=== PATIENT | female | born 1980 | race Caucasian/White ===

== ENCOUNTER → 2017-06-02 18:44 | Outpatient (CLI) | payer OTHER, SELFPAY | PROVIDERS: Family Provider Family Medicine; PCP Family Medicine; Visit Provider Physician Assistant Surgical | DX: J02.9 Acute pharyngitis, unspecified (principal) | CPT/HCPCS: 87081 ==

== ENCOUNTER → 2017-07-27 11:34 | Outpatient (CLI) | payer OTHER, SELFPAY ==
[2017-07-27 15:24] LABS: Absolute Lymphocyte Count 2.32 X10^3/ul (0.83-4.51); Absolute Neutrophil Count 4.4 X10^3/uL (2.0-7.7); Basophil# 0.03 X10^3/uL; Basophil% 0.4 % (0-1); Eosinophil# 0.23 X10^3/uL; Eosinophils% 3.1 % (0-5); Hematocrit 37.7 % (37-47); Hemoglobin 12.6 g/dl (12.0-15.0); Lymphocyte # 2.32 X10^3/ul (4.0); Lymphocyte % 30.9 % (19-41); Mean Corp Hgb Conc 33.4 g/gl (32-36); Mean Corpuscular Hgb 30.4 pg (27.0-32.0); Mean Corpuscular Volume 91.1 fL (81-99); Mean Platelet Vol. 11.6 fl (6.2-12.0); Monocyte# 0.54 X10^3/uL; Monocyte% 7.2 % (0-10); Neutrophil # 4.38 X10^3/uL (2.7-7.7); Neutrophil % 58.1 % (47-70); Platelet Count 268 K/mm3 (150-450); RBC Distribution Width CV 13.1 % (11.6-14.6); Red Blood Count 4.14 M/mm3 (4.2-5.4); White Blood Count 7.5 K/mm3 (4.4-11.0)
[2017-07-27 15:28] LABS: POSITIVE COUNT NO; POSITIVE DIFFERENTIAL NO; POSITIVE MORPHOLOGY NO
[2017-07-27 15:51] LABS: Vitamin D,25 Hydroxy 46.1 ng/mL (29.95-100.01)
[2017-07-27 16:00] LABS: ALB/GLOB Ratio 0.9 RATIO (0.9-2.4); AST(SGOT) 12 U/L (15-37); Alanine Aminotransfer ALT/SGPT 22 U/L (13-56); Albumin, Serum 3.8 g/dL (3.2-5.0); Alkaline Phosphatase 72 U/L (45-117); Anion Gap 7 (5-15); BUN 14 mg/dL (7-18); BUN/Creat Ratio 14.8 RATIO (10-20); Calcium,Total 9.2 mg/dL (8.5-10.1); Chloride 103 mmol/L (98-107); Creatinine, Serum 0.94 mg/dL (0.55-1.02); EST Glomerular Filtration Rate 71 mL/min (>60); Est Glom Filt Rate - Afr Amer 86 mL/min (>60); Globulin 4.1 g/dL (2.2-4.2); Glucose 75 mg/dL (74-106); Potassium 3.6 mmol/L (3.5-5.1); Protein, Total 7.9 g/dL (6.4-8.2); Rheumatoid Factor < 10.0 IU/mL (<15); Sodium Level 137 mmol/L (136-145); T4 Free Direct 1.13 ng/dL (0.76-1.46); Thyroid Stim Hormone (TSH) 1.59 uIU/mL (0.358-3.74)
[2017-07-28 13:36] LABS: ANTINUCLEAR ANTIBODIES DIRECT Negative (Negative)
[2017-07-29 11:25] LABS: CCP IgG Antibodies 4 units (0-19)
== END ==
PROVIDERS: Family Provider Family Medicine; PCP Family Medicine; Visit Provider Family Medicine
DX: M06.00 Rheumatoid arthritis without rheumatoid factor, unspecified site (principal); R61 Generalized hyperhidrosis; R79.89 Other specified abnormal findings of blood chemistry; R53.83 Other fatigue
CPT/HCPCS: 36415; 80053; 82306; 84439; 84443; 85025; 86038; 86200; 86225; 86235; 86431

== ENCOUNTER → 2018-04-05 12:03 | Outpatient (CLI) | payer OTHER, SELFPAY ==
--- NOTE | 2018-04-05 12:09 | RAD_ITS ---
STUDY: X-RAY CHEST REASON FOR EXAM: Female, 37 years old. Cough. TECHNIQUE: PA and lateral views of the chest. COMPARISON: None. FINDINGS: Patchy infiltrates are seen in the right upper, right middle and right lower lobes as well as in the left upper lobe. There is no demonstrated pleural abnormality. Normal size heart. Normal mediastinum and sonia. Normal visualized pulmonary arteries. Normal visualized aortic arch and descending thoracic aorta. Normal visualized thoracic spine. Normal visualized ribs, clavicles, and shoulders. There is no demonstrated abnormality of the visualized soft tissue structures of the upper abdomen. RAD/Chest PA and Lateral IMPRESSION: Patchy infiltrates are seen in both lungs as described. Follow-up is recommended. Electronically Signed: Jordon Sood MD at 12:27 EST Tel [phone], Service support ,
== END ==
PROVIDERS: Family Provider Family Medicine; PCP Family Medicine; Referring Provider Family Medicine; Visit Provider Family Medicine
DX: J40 Bronchitis, not specified as acute or chronic (principal)
CPT/HCPCS: 71046

== ENCOUNTER → 2018-05-05 10:39 | Outpatient (CLI) | payer OTHER, SELFPAY ==
[2018-05-05 10:00] VITALS: BMI 26.4
[2018-05-05 11:00] LABS: Absolute Lymphocyte Count 2.34 X10^3/ul (0.83-4.51); Absolute Neutrophil Count 5.9 X10^3/uL (2.0-7.7); Basophil# 0.04 X10^3/uL; Basophil% 0.4 % (0-1); Eosinophil# 0.39 X10^3/uL; Eosinophils% 4.2 % (0-5); Hematocrit 37.8 % (37-47); Hemoglobin 12.7 g/dl (12.0-15.0); Lymphocyte # 2.34 X10^3/ul (4.0); Lymphocyte % 24.9 % (19-41); Mean Corp Hgb Conc 33.6 g/gl (32-36); Mean Corpuscular Hgb 29.7 pg (27.0-32.0); Mean Corpuscular Volume 88.5 fL (81-99); Mean Platelet Vol. 10.8 fl (6.2-12.0); Monocyte# 0.72 X10^3/uL; Monocyte% 7.7 % (0-10); Neutrophil # 5.86 X10^3/uL (2.7-7.7); Neutrophil % 62.5 % (47-70); Platelet Count 262 K/mm3 (150-450); RBC Distribution Width CV 13.6 % (11.6-14.6); RBC Distribution Width SD 43.1 fl (35.1-43.9); Red Blood Count 4.27 M/mm3 (4.2-5.4); White Blood Count 9.4 K/mm3 (4.4-11.0)
[2018-05-05 11:01] LABS: POSITIVE COUNT NO; POSITIVE DIFFERENTIAL NO; POSITIVE MORPHOLOGY NO
[2018-05-05 12:09] LABS: HIV - WCH Non-Reactive (Nonreactive); Rubella IgG > 500.0 IU/mL
[2018-05-05 17:17] LABS: Chlamydia Trachomatis by PCR Negative (Negative); Neisserai gonorrhoeae by PCR Negative (Negative); Probe Check PASS; Sample Adequacy Control PASS; Specimen Processing Control PASS
[2018-05-06 07:54] LABS: HEPATITIS B SURFACE AG Negative (Negative)
[2018-05-06 23:34] LABS: Rapid Plasmin Reagin (RPR) NONREACTIVE (NONREACTIVE)
== END ==
PROVIDERS: Family Provider Family Medicine; PCP Family Medicine; Referring Provider Nurse Practitioner Women's Health; Visit Provider Nurse Practitioner Women's Health
DX: Z34.80 Encounter for supervision of other normal pregnancy, unspecified trimester (principal)
CPT/HCPCS: 36415; 85025; 86592; 86703; 86762; 86850; 86900; 87086; 87340; 87491; 87591

== ENCOUNTER → 2018-05-18 08:52 | Outpatient (CLI) | payer OTHER, SELFPAY ==
[2018-05-05 10:00] VITALS: BMI 26.4
== END ==
PROVIDERS: Family Provider Family Medicine; PCP Family Medicine; Visit Provider Nurse Practitioner Women's Health
DX: Z34.81 Encounter for supervision of other normal pregnancy, first trimester (principal); Z31.430 Encounter of female for testing for genetic disease carrier status for procreative management
CPT/HCPCS: 36415

== ENCOUNTER → 2018-07-05 13:20 | Outpatient (CLI) | payer OTHER, SELFPAY ==
[2018-07-05 11:16] VITALS: BMI 26.4
== END ==
PROVIDERS: Family Provider Family Medicine; PCP Family Medicine; Visit Provider Nurse Practitioner Women's Health
DX: N30.00 Acute cystitis without hematuria (principal); Z36.9 Encounter for antenatal screening, unspecified
CPT/HCPCS: 36415; 87086; 87088; 87186

== ENCOUNTER → 2018-07-13 18:04 | Outpatient (CLI) | payer OTHER, SELFPAY ==
[2018-07-13 10:01] VITALS: BMI 30.5
== END ==
PROVIDERS: Family Provider Family Medicine; PCP Family Medicine; Referring Provider Nurse Practitioner Women's Health; Visit Provider Nurse Practitioner Women's Health
DX: O23.40 Unspecified infection of urinary tract in pregnancy, unspecified trimester (principal)
CPT/HCPCS: 87086

== ENCOUNTER → 2018-07-20 13:52 | Outpatient (CLI) | payer OTHER, SELFPAY ==
[2018-07-05 11:16] VITALS: BMI 26.4
[2018-07-13 10:01] VITALS: BMI 30.5
--- NOTE | 2018-07-20 13:53 | US_ITS ---
STUDY: SECOND AND THIRD TRIMESTER OBSTETRICAL ULTRASOUND REASON FOR EXAM: Female, . Anatomy. LMP: March 08, 2018. TECHNIQUE: Transabdominal. TECHNICAL QUALITY: Adequate. PRIOR ULTRASOUND: None. FINDINGS: There is a single intrauterine fetus. The fetus is in a breech presentation. There is demonstrated cardiac activity with a heart rate of 140 bpm. There is a subjectively normal amniotic fluid volume. The placenta is posterior in location and is not low lying. There are Grade 0 placental changes. The cervix measures 4.0 in length. The bilateral adnexal regions are normal. BIOMETRY: BPD: 4.16 cm: 18 weeks, 5 days HC: 16.34 cm: 19 weeks, 1 days AC: 15.02 cm: 20 weeks, 2 days FL: 3.03 cm: 19 weeks, 3 days CI: 72% FL/BPD: 73% FL/AC: 20% HC/AC: 1.09 age by current US: 19 weeks, 3 days. ZEFERINO by current US: December 11, 2018.. Estimated weight: 310 grams, +/- 45 grams, 79 %. Age by LMP: 19 weeks, 1 days. ZEFERINO by LMP: December 13, 2018.. ANATOMY: Cranium: Normal lateral ventricles. Normal choroid plexus. Normal cerebellum. Normal cisterna magna. Normal face, nose and lips. Chest: Normal 4-chamber heart. Abdomen/Pelvis: Normal diaphragm. Normal stomach. Normal abdominal wall. Normal cord insertion. Normal 3 vessel cord. Normal kidneys. Normal bladder. Spine: Normal cervical spine. Normal thoracic spine. Normal lumbar spine. Normal sacrum. Extremities: Normal bilateral upper extremities. Normal bilateral lower extremities. US/OB Anatomy Scan IMPRESSION: Viable, breech presentation intrauterine . Please see statistics above. No sonographically evident anatomic abnormality. age by current ultrasound is 19 weeks and 3 days with estimated date of deliver by ultrasound of December 11, 2018. Electronically Signed: Jorge Magaña MD at 16:10 EDT , Service support ,
== END ==
PROVIDERS: Family Provider Family Medicine; PCP Family Medicine; Referring Provider Obstetrics & Gynecology; Visit Provider Obstetrics & Gynecology
DX: Z36.9 Encounter for antenatal screening, unspecified (principal)
CPT/HCPCS: 76805

== ENCOUNTER → 2018-09-16 08:32 | Outpatient (CLI) | payer OTHER, SELFPAY ==
[2018-08-27 08:18] VITALS: BMI 30.5
[2018-09-16 09:38] LABS: Absolute Lymphocyte Count 2.09 X10^3/ul (0.83-4.51); Absolute Neutrophil Count 8.5 X10^3/uL (2.0-7.7); Basophil# 0.02 X10^3/uL; Basophil% 0.2 % (0-1); Differential Indicated SCAN CRITERIA MET; Eosinophil# 0.24 X10^3/uL; Hematocrit 31.3 % (37-47); Hemoglobin 10.4 g/dl (12.0-15.0); Lymphocyte # 2.09 X10^3/ul (4.0); Lymphocyte % 17.7 % (19-41); Mean Corp Hgb Conc 33.2 g/gl (32-36); Mean Corpuscular Hgb 29.4 pg (27.0-32.0); Mean Corpuscular Volume 88.4 fL (81-99); Mean Platelet Vol. 10.7 fl (6.2-12.0); Monocyte% 6.8 % (0-10); Neutrophil # 8.54 X10^3/uL (2.7-7.7); Neutrophil % 72.4 % (47-70); POSITIVE COUNT NO; POSITIVE DIFFERENTIAL NO; POSITIVE MORPHOLOGY NO; Platelet Count 214 K/mm3 (150-450); RBC Distribution Width SD 42.4 fl (35.1-43.9); Red Blood Count 3.54 M/mm3 (4.2-5.4); White Blood Count 11.8 K/mm3 (4.4-11.0)
[2018-09-16 10:03] LABS: Glucose Challenge Gest 1H 50g 54 mg/dL (70-140)
== END ==
PROVIDERS: Family Provider Family Medicine; PCP Family Medicine; Referring Provider Obstetrics & Gynecology; Visit Provider Obstetrics & Gynecology
DX: O09.90 Supervision of high risk pregnancy, unspecified, unspecified trimester (principal); Z3A.00 Weeks of gestation of pregnancy not specified
CPT/HCPCS: 36415; 82950; 85025

== ENCOUNTER → 2018-10-14 07:58 | Outpatient (CLI) | payer OTHER, SELFPAY ==
[2018-10-08 09:03] VITALS: BMI 30.5
--- NOTE | 2018-10-14 08:00 | US_ITS ---
STUDY: SECOND AND THIRD TRIMESTER OBSTETRICAL ULTRASOUND REASON FOR EXAM: Female, 38 years old. Routine survey. LMP: March 08, 2018. TECHNIQUE: Transabdominal TECHNICAL QUALITY: Adequate. PRIOR ULTRASOUND: None. FINDINGS: There is a single intrauterine fetus. The fetus is in a breech presentation. There is demonstrated cardiac activity with a heart rate of 139 bpm. There is a normal amniotic fluid volume. The largest amniotic fluid pocket measures 5.4 cm. The amniotic fluid index (STEFAN) is 17.5 cm. The placenta is fundal in location. There are Grade 1 placental changes. The cervix measures 4.8 cm in length. The adnexal regions are not visualized. BIOMETRY: BPD: 8.43 cm: 34 weeks, 0 days HC: 31.36 cm: 35 weeks, 2 days AC: 30.01 cm: 34 weeks, 0 days FL: 5.93 cm: 31 weeks, 0 days CI: 77 FL/BPD: 70% FL/HC: FL/AC: 20% HC/AC: 1.04 age by current US: 33 weeks, 4 days. ZEFERINO by current US: November 28, 2018. Estimated weight: 2148 grams, +/- 314 grams, 91 %. age by prior US: 31 weeks, 5 days. ZEFERINO by prior US: December 11, 2018. Age by LMP: 31 weeks, 3 days. ZEFERINO by LMP: December 13, 2018. US/OB Limited With Biometrics IMPRESSION: Single live intrauterine gestation with a mean gestational age of 31 weeks and 5 days. The measurements obtained today follow up in the normal expected range. Electronically Signed: Jordon Sood, at 15:09 EDT , Service support ,
== END ==
PROVIDERS: Family Provider Family Medicine; PCP Family Medicine; Referring Provider Obstetrics & Gynecology; Visit Provider Obstetrics & Gynecology
DX: O26.843 Uterine size-date discrepancy, third trimester (principal); Z3A.00 Weeks of gestation of pregnancy not specified
CPT/HCPCS: 76816

== ENCOUNTER → 2018-11-03 13:38 | Outpatient (CLI) | payer OTHER, SELFPAY ==
[2018-11-03 09:27] VITALS: BMI 32.8
== END ==
PROVIDERS: Family Provider Family Medicine; PCP Family Medicine; Referring Provider Nurse Practitioner Women's Health; Visit Provider Nurse Practitioner Women's Health
DX: O23.40 Unspecified infection of urinary tract in pregnancy, unspecified trimester (principal); Z3A.00 Weeks of gestation of pregnancy not specified
CPT/HCPCS: 87086; 87088

== ENCOUNTER 2018-11-08 06:40 | Outpatient (CLI) | payer OTHER, SELFPAY ==
[2018-11-05 10:48] VITALS: BMI 32.8
[2018-11-08 07:19] VITALS: BMI 27.1
--- NOTE | 2018-11-08 10:29 | OB.TRI.PN_ITS ---
Progress Notes Date of Service: 11/08/18 Progress Note: decreased movememnt fht 140 moderate variability reactive no decelerations category I tracing [place]: irregular a/p decreased movement dc home kick counts reactive nst Multi Select Codes - Urinary/Genital Urinary/Genital CPT Codes: 96781-95 non-stress test Interp
== END 2018-11-08 07:40 | disposition home or self-care (01) ==
LOC: WPOUT 07:00 → WP 07:00
PROVIDERS: Family Provider Family Medicine; PCP Family Medicine; Referring Provider Obstetrics & Gynecology; Visit Provider Obstetrics & Gynecology
DX: O36.8190 Decreased fetal movements, unspecified trimester, not applicable or unspecified (principal); Z3A.00 Weeks of gestation of pregnancy not specified
CPT/HCPCS: 59025; 59050; 99218; G0378

== ENCOUNTER → 2018-11-11 07:46 | Outpatient (CLI) | payer OTHER, SELFPAY ==
[2018-10-20 08:55] VITALS: BMI 32.8
[2018-11-08 07:19] VITALS: BMI 27.1
--- NOTE | 2018-11-11 07:47 | US_ITS ---
STUDY: SECOND AND THIRD TRIMESTER OBSTETRICAL ULTRASOUND - LIMITED REASON FOR EXAM: Female, 38 years old. Routine survey. LMP: March 08, 2018. PRIOR ULTRASOUND: Comparison is made with prior study dated October 14, 2018. TECHNIQUE: Transabdominal TECHNICAL QUALITY: Adequate. FINDINGS: There is a single intrauterine fetus. The fetus is in a cephalic presentation. There is demonstrated cardiac activity with a heart rate of 127 bpm. There is a normal amniotic fluid volume. The largest amniotic fluid pocket measures 6.0 cm. The amniotic fluid index (STEFAN) is 20.55 cm. The placenta is fundal in location. There are Grade 1 placental changes. The cervix measures 3.6 cm in length. BIOMETRY: BPD: 9.38 cm: 38 weeks, 2 days HC: 34.21 cm: 39 weeks, 4 days AC: 33.39 cm: 37 weeks, 3 days FL: 6.93 cm: 34 weeks, 5 days Age by LMP: 35 weeks, 3 days. ZEFERINO by LMP: December 13, 2018. age by prior US: 37 weeks, 4 days. ZEFERINO by prior US: November 28, 2018. age by current US: 37 weeks, 4 days. ZEFERINO by current US: November 28, 2018. Estimated weight: 3083 grams, +/- 450 grams, 88 percentile. US/OB Limited With Biometrics IMPRESSION: Single live intrauterine gestation with a mean gestational age of 37 weeks and 4 days. The measurements obtained today fall within the normal expected range. Electronically Signed: Jordon Sood, at 14:11 EDT , Service support ,
== END ==
PROVIDERS: Family Provider Family Medicine; PCP Family Medicine; Referring Provider Obstetrics & Gynecology; Visit Provider Obstetrics & Gynecology
DX: O09.513 Supervision of elderly primigravida, third trimester (principal); Z3A.37 37 weeks gestation of pregnancy
CPT/HCPCS: 76816

== ENCOUNTER → 2018-11-17 17:18 | Outpatient (CLI) | payer OTHER, SELFPAY ==
[2018-11-17 09:08] VITALS: BMI 27.1
== END ==
PROVIDERS: Family Provider Family Medicine; PCP Family Medicine; Referring Provider Obstetrics & Gynecology; Visit Provider Obstetrics & Gynecology
DX: Z34.93 Encounter for supervision of normal pregnancy, unspecified, third trimester (principal); Z3A.36 36 weeks gestation of pregnancy
CPT/HCPCS: 87081

== ENCOUNTER 2018-11-29 11:05 | Outpatient (CLI) | payer OTHER, SELFPAY ==
[2018-11-24 08:55] VITALS: BMI 27.1
[2018-11-29 11:24] VITALS: BMI 34.0
[2018-11-29 11:40] LABS: Absolute Lymphocyte Count 2.12 X10^3/uL (0.83-4.51); Absolute Neutrophil Count 7.4 X10^3/uL (2.0-7.7); Basophil# 0.05 X10^3/uL; Basophil% 0.5 % (0-1); Eosinophil# 0.23 X10^3/uL; Eosinophils% 2.1 % (0-5); Hemoglobin 11.5 g/dL (12.0-15.0); Lymphocyte # 2.12 X10^3/ul (4.0); Lymphocyte % 19.6 % (19-41); Mean Corp Hgb Conc 33.8 g/dL (32-36); Mean Corpuscular Hgb 28.8 pg (27.0-32.0); Mean Corpuscular Volume 85.2 fL (81-99); Mean Platelet Vol. 11.8 fl (6.2-12.0); Monocyte# 0.86 X10^3/uL; NRBC Flagged by Analyzer 0 % (0-5); Neutrophil # 7.41 X10^3/uL (2.7-7.7); Neutrophil % 68.7 % (47-70); Platelet Count 184 K/mm3 (150-450); RBC Distribution Width CV 14.2 % (11.6-14.6); RBC Distribution Width SD 44.5 fl (35.1-43.9); Red Blood Count 3.99 M/mm3 (4.2-5.4); White Blood Count 10.8 K/mm3 (4.4-11.0)
[2018-11-29 11:55] LABS: ALB/GLOB Ratio 0.7 RATIO (0.9-2.4); AST(SGOT) 16 U/L (15-37); Alanine Aminotransfer ALT/SGPT 34 U/L (13-56); Albumin, Serum 2.8 g/dL (3.2-5.0); Alkaline Phosphatase 215 U/L (45-117); Anion Gap 9 (5-15); BUN 8 mg/dL (7-18); BUN/Creat Ratio 10.3 RATIO (10-20); Calcium,Total 9.5 mg/dL (8.5-10.1); Chloride 107 mmol/L (98-107); Creatinine, Serum 0.78 mg/dL (0.55-1.02); EST Glomerular Filtration Rate 89 mL/min (>60); Est Glom Filt Rate - Afr Amer 107 mL/min (>60); Globulin 4.3 g/dL (2.2-4.2); Glucose 71 mg/dL (74-106); Potassium 3.5 mmol/L (3.5-5.1); Protein, Total 7.1 g/dL (6.4-8.2); Sodium Level 138 mmol/L (136-145)
--- NOTE | 2018-11-29 22:15 | OB.TRI.PN ---
Progress Notes Date of Service: 11/29/18 Progress Note: patient seen secondary to pruritis. nl labs, bile acids sent fht 130 moderate variability reactive no decelerations category I tracing [place]: irregular A/P pruritis in reactive nst nl labs await bile acids. kick counts. Laboratory Studies: Laboratory Tests 11/29/18 11/29/18 Range/Units 11:25 11:25 WBC 10.8 (4.4-11.0) K/mm3 RBC 3.99 L (4.2-5.4) M/mm3 Hgb 11.5 L (12.0-15.0) g/dL Hct 34.0 L (37-47) % MCV 85.2 (81-99) fL MCH 28.8 (27.0-32.0) pg MCHC 33.8 (32-36) g/dL RDW Std Deviation 44.5 H (35.1-43.9) fl RDW Coeff of Ervin 14.2 (11.6-14.6) % Plt Count 184 (150-450) K/mm3 MPV 11.8 (6.2-12.0) fl Immature Gran % (Auto) 1.100 H (0.0-0.9) % Neut % (Auto) 68.7 (47-70) % Lymph % (Auto) 19.6 (19-41) % [place] % (Auto) 8.0 (0-10) % Eos % (Auto) 2.1 (0-5) % Baso % (Auto) 0.5 (0-1) % Absolute Neuts (auto) 7.4 (2.0-7.7) X10^3/uL Absolute Lymphs (auto) 2.12 (0.83-4.51) X10^3/uL Nucleated RBC % 0 (0-5) % Sodium 138 (136-145) mmol/L Potassium 3.5 (3.5-5.1) mmol/L Chloride 107 (98-107) mmol/L Carbon Dioxide 22.0 (21.0-32.0) mmol/L Anion Gap 9 (5-15) BUN 8 (7-18) mg/dL Creatinine 0.78 (0.55-1.02) mg/dL Estim Creat Clear Calc 78.10 ml/min Est GFR (MDRD) Af Amer 107 (>60) mL/min Est GFR (MDRD) Non-Af 89 (>60) mL/min BUN/Creatinine Ratio 10.3 (10-20) RATIO Glucose 71 L (74-106) mg/dL Calcium 9.5 (8.5-10.1) mg/dL Total Bilirubin 0.30 (0.20-1.00) mg/dL AST 16 (15-37) U/L ALT 34 (13-56) U/L Alkaline Phosphatase 215 H (45-117) U/L Total Protein 7.1 (6.4-8.2) g/dL Albumin 2.8 L (3.2-5.0) g/dL Globulin 4.3 H (2.2-4.2) g/dL Albumin/Globulin Ratio 0.7 L (0.9-2.4) RATIO Multi Select Codes - Urinary/Genital Urinary/Genital CPT Codes: 95574-18 non-stress test Interp
== END 2018-11-29 13:20 | disposition home or self-care (01) ==
LOC: WPOUT 11:16 → WP 11-30 13:51
PROVIDERS: Family Provider Family Medicine; PCP Family Medicine; Referring Provider Obstetrics & Gynecology; Visit Provider Obstetrics & Gynecology
DX: O26.899 Other specified pregnancy related conditions, unspecified trimester (principal); L29.9 Pruritus, unspecified; Z3A.00 Weeks of gestation of pregnancy not specified
CPT/HCPCS: 36415; 59025; 59050; 80053; 85025; 99218; G0378

== ENCOUNTER 2018-12-01 16:20 | Outpatient (CLI) | payer OTHER, SELFPAY ==
[2018-12-01 09:00] VITALS: BMI 34.0
[2018-12-01 16:57] VITALS: BMI 34.4
--- NOTE | 2018-12-02 00:58 | OB.TRI.NOTE ---
- Problem List (1) False labor Status: Acute History of Present Illness Date of Service: 12/01/18 Was patient seen by the physician?: Yes Reason For Visit: R/O LABOR Gestational age: 38 History of Present Illness: co ctx Allergies No Known Allergies Allergy (Verified 12/01/18 08:59) - Pertinent Past Medical History Medical History: Past Medical History (Last Reviewed 12/01/18 @ 09:00 by Anjelica Fuentes) Asthma Rheumatoid arthritis Surgical History: Past Surgical History (Last Reviewed 12/01/18 @ 09:00 by Anjelica Fuentes) History of elbow surgery tendon elbow repair NST - FHR Rate Baby A Baseline: 130 Variability:: Moderate Accelerations:: 15 x 15 Decelerations:: None NST Reactive:: Yes FHR Category:: Category I Uterine Activity:: q 2-4 Impression/Plan false labor reactive nst cat I dc home labor precautions no cervical change Multi Select Codes - Urinary/Genital Urinary/Genital CPT Codes: 20977-58 non-stress test Interp
== END 2018-12-01 18:45 | disposition home or self-care (01) ==
LOC: WPOUT 16:52 → WP 16:53
PROVIDERS: Family Provider Family Medicine; PCP Family Medicine; Referring Provider Obstetrics & Gynecology; Visit Provider Obstetrics & Gynecology
DX: O47.1 False labor at or after 37 completed weeks of gestation (principal); O26.893 Other specified pregnancy related conditions, third trimester; M06.9 Rheumatoid arthritis, unspecified; J45.909 Unspecified asthma, uncomplicated; Z3A.38 38 weeks gestation of pregnancy
CPT/HCPCS: 59025; 59050; 99218; G0378

== ENCOUNTER 2018-12-06 07:12 | Inpatient (IN) | payer OTHER, SELFPAY ==
[2018-12-06 07:26] VITALS: BMI 34.4
[2018-12-06] MEDS: Lactated Ringers 1,000 ML 50 ML IV (08:00)
[2018-12-06 08:11] LABS: Absolute Lymphocyte Count 2.22 X10^3/uL (0.83-4.51); Absolute Neutrophil Count 7.6 X10^3/uL (2.0-7.7); Basophil# 0.04 X10^3/uL; Basophil% 0.4 % (0-1); Eosinophil# 0.23 X10^3/uL; Eosinophils% 2.1 % (0-5); Hematocrit 34.4 % (37-47); Hemoglobin 11.5 g/dL (12.0-15.0); Lymphocyte # 2.22 X10^3/ul (4.0); Lymphocyte % 20.4 % (19-41); Mean Corp Hgb Conc 33.4 g/dL (32-36); Mean Corpuscular Hgb 28.8 pg (27.0-32.0); Mean Corpuscular Volume 86.2 fL (81-99); Mean Platelet Vol. 12.1 fl (6.2-12.0); Monocyte# 0.68 X10^3/uL; Monocyte% 6.2 % (0-10); NRBC Flagged by Analyzer 0 % (0-5); Neutrophil % 69.8 % (47-70); Platelet Count 190 K/mm3 (150-450); RBC Distribution Width CV 14.5 % (11.6-14.6); RBC Distribution Width SD 45.6 fl (35.1-43.9); Red Blood Count 3.99 M/mm3 (4.2-5.4); White Blood Count 10.9 K/mm3 (4.4-11.0)
[2018-12-06] MEDS: Oxytocin 30 units/NS 500 ml 30 UNITS/500 ML IV.SOLN IV (08:30)
[2018-12-06] MEDS: Lactated Ringers 500 ML 999 ML IV ×2 (13:20→16:15)
[2018-12-06] MEDS: fentaNYL-bupivacaine (epidural) 100 ML BAG EPIDURAL ×2 (13:25→19:56)
[2018-12-06] MEDS: Ondansetron 4 MG/2 ML Vial IV ×2 (15:17→21:30)
[2018-12-06] MEDS: Lactated Ringers 1,000 ML 200 ML IV ×3 (15:54→22:59)
--- NOTE | 2018-12-06 18:08 | HP.PCM_ITS ---
- Problem List (1) AMA (advanced maternal age) multigravida 35+ Status: Acute Qualifiers: Trimester: third trimester Qualified Code(s): O09.523 - Supervision of elderly multigravida, third trimester (2) Anemia during Status: Acute (3) Asthma Status: Acute Qualifiers: Asthma severity: mild Asthma persistence: unspecified Asthma complication type: unspecified Qualified Code(s): J45.909 - Unspecified asthma, uncomplicated Comment: exercise induced-uses OTC bronchodilator (4) False labor Status: Acute (5) Status: Acute Qualifiers: Weeks of gestation: 38 weeks Qualified Code(s): Z3A.38 - 38 weeks gestation of Comment: low risk-female/AFP. Normal anatomy (6) Rectus diastasis Status: Acute (7) Supervision of high risk , antepartum Status: Acute Comment: PRR ZEFERINO 12/13/18 girl Araceli Kaufman boyfrienpankaj Wong (8) UTI in Status: Acute Qualifiers: Trimester: first trimester Qualified Code(s): O23.41 - Unspecified infection of urinary tract in , first trimester Comment: 07/06:tx. Repeat culture negative History and Physical Date of Admission: 12/06/18 Intake Vital Signs 12/01/18 Body Mass Index (BMI) 34.0 12/01/18 Height 5 ft 2 in 12/01/18 Weight: 188 lb 12/01/18 Body Mass Index (BMI) 34.4 12/01/18 Blood Pressure 122/84 H Intake Visit Reasons: 38 WEEK OB Chief Complaint: est ob Resource Conservation Manager Required: No Is patient in pain?: No Allergies No Known Allergies Allergy (Verified 12/01/18 08:59) Medications ferrous sulfate 325 mg (65 mg iron) tablet 325 mg PO DAILY 10/08/18 [History Confirmed 11/29/18] vitamin,calcium,ejnrgmxh-rups-mbgyt acid tablet 1 tab PO DAILY 10/08/18 [History Confirmed 12/01/18] Last Menstral Period: 03/08/18 Zika: Zika virus screening: Negative : No PFSH PFSH Medical History Asthma (Acute) Rheumatoid arthritis (Acute) Surgical History History of elbow surgery (Acute) Social History (Updated 12/02/18 @ 01:57 by Nerissa Warren MD) Smoking Status: Never smoker alcohol intake: never substance use type: does not use caffeine: Yes what type of physical activity do you participate in: weight training, other details: treadmill frequency: 1-2 times per week seatbelt use: always do you feel safe at home: Yes additional social history: [employer] 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 Date Name GA/Weeks Outcome Route Bth Weight Gen Labor Lgth Anesthesia Del Locatn Provider FOB 10/26/11 Mandeep 38 live - full term 6lbs 13oz Male 1 2 hours epidural [facility] Dr. Kelvin Hooker Delivery Date: 10/26/11 On 05/05/18 @ 09:35 Candace Dai Moderate bleeding after . HPI 38 WEEK OB: Details: LUCIEN MARIN is a 38 year old who presents for routine OB visit. OB Visit ZEFERINO Calculator Estimated Delivery Date Method Current WG Current Estimate 12/13/18 LMP (Certain) 38w 3d Expected Delivery Route/Plan Specific Issue/Plans flu vaccine: yes tdap vaccine: given rhogam: na LARC form signed: danial labor support person: Marvin pain management: epidural cut cord/dad catch: yes : yes PP control planned: [] special requests: [] Initial Weight: Not Recorded Date EGA Weight BP Urine Prot Glucose FHR FuHt Pres Mov CTX Dilation Effaced St Visit Note Effaced 05/05/18 8w 2d 157 lb 4 oz 116/74 171 06/04/18 12w 4d 162 lb 118/64 160 nl NIPT. no vb crmaping 07/05/18 17w 0d 163 lb 6 oz 110/70 Negative Negative 147 Urinary frequency and pressure since yesterday. 07/30/18 20w 4d 169 lb 8 oz 104/76 Negative Negative 143 20 Active absent NO Vb, LOF. Lifted patient earlier this week and felt tearing pain upper abdomen. Exam confirms upper rectus diastasis 08/27/18 24w 4d 173 lb 4 oz 114/70 Negative Negative 140 24 Active no vb lof good f no regular ctx 09/24/18 28w 4d 179 lb 6 oz 116/76 Negative Negative 128 28 Active absent No VB, LOF. Increased heartburn, SOB 10/08/18 30w 4d 180 lb 2 oz 124/70 125 34 Breech Active absent no vb lof good fm n oregular ctx co upper abdominal tension and discomfort. recommend chiropractor and ordered growth us 10/20/18 32w 2d 185 lb 118/76 135 35 Breech Active occasional no vb lof good fm n oregular ctx, reviewed growth us results 11/05/18 34w 4d 185 lb 112/72 Negative Negative 135 36 Breech Active absent no vb lof good fm no regular ctx, having some anxiety 11/17/18 36w 2d 189 lb 116/72 135 39 Cephalic Active absent 0.5 no vb lof good fm no regular ctx 11/24/18 37w 2d 191 lb 122/80 Negative Negative 135 39 Cephalic Active absent no vb lof good fm no regular ctx co hip pain and back pain 12/01/18 38w 2d 188 lb 122/84 Negative Negative 135 40 Cephalic Active occasional 3 50 -2 discussed IOL 39 weeks du e to ama and macro, favorable cervix. no vb lof good fm no regular ctx Visit Notes Visit Date: 12/01/18 ??discussed IOL 39 weeks due to ama and macro, favorable cervix. no vb lof good fm no regular ctx ??Nerissa Warren MD on 12/02/18 Visit Date: 11/24/18 ??no vb lof good fm no regular ctx co hip pain and back pain ??Nerissa Warren MD on 11/30/18 Visit Date: 11/17/18 ??no vb lof good fm no regular ctx ??Nerissa Warren MD on 11/17/18 Visit Date: 11/05/18 ??no vb lof good fm no regular ctx, having some anxiety ??Nerissa Warren MD on 11/05/18 Visit Date: 10/20/18 ??no vb lof good fm n oregular ctx, reviewed growth us results ??Nerissa Warren MD on 10/20/18 Visit Date: 10/08/18 ??no vb lof good fm n oregular ctx co upper abdominal tension and discomfort. recommend chiropractor and ordered growth us ??Nerissa Warren MD on 10/08/18 Visit Date: 09/24/18 ??No VB, LOF. Increased heartburn, SOB ??MATHIEU AbrahamC on 09/24/18 Visit Date: 08/27/18 ??no vb lof good f no regular ctx ??Nerissa Warren MD on 08/27/18 Visit Date: 07/30/18 ??NO Vb, LOF. Lifted patient earlier this week and felt tearing pain upper abdomen. Exam confirms upper rectus diastasis ??CLEMENTE Abraham on 07/30/18 Visit Date: 07/05/18 ??Urinary frequency and pressure since yesterday. ??CLEMENTE Abraham on 07/05/18 Visit Date: 06/04/18 ??nl NIPT. no vb crmaping ??Nerissa Warren MD on 06/04/18 Visit Date: 05/05/18 ??No visit notes to display ACOG First Trimester First Trimester: Desire for , Alcohol, Tobacco Cessation, Illicit/Recreational Drug/Substance Use, Intimate Partner Violence, Barriers to care, Unstable Housing, Communication Barriers, Environmental/Work Hazards, Anticipated Course of Care, Toxoplasmosis Precations, Use of Any medications, Sexual activity, Exercise, Dental Care, Sauna/Hot tub use, Seat Belt use, Childbirth classes/Hospital facilities, , Travel, Indications for US and Screening for Aneuploidy Second Trimester Second Trimester: Signs and Symptoms of Labor, Selecting a care provider, Reproductive Life Planning, Care Planning, Tobacco Cessation, Depression/Anxiety and Intimate Partner Violence Third Trimester Third Trimester: Pain Management Plans, Labor support person(s), Immediate Larc, Movement Monitoring and Feeding Yes ; discussed Trial of Labor after Counseling or discussed Circumcision preference Diagnostics Diagnostics Labs Hct 34.0 % (37-47) L 11/29/18 Hgb 11.5 g/dL (12.0-15.0) L 11/29/18 Obstetrics Ultrasound 11/11/18 Miscellaneous Test Pending 11/29/18 Diagnostics Hgb 11.5 g/dL (12.0-15.0) L 11/29/18 Hct 34.0 % (37-47) L 11/29/18 Details: HIV: Urine Culture: Sequential Screen: NIPT Screen: ROS Const Reports system reviewed and no additional complaints, except as docu Card Reports system reviewed and no additional complaints, except as docu Resp Reports system reviewed and no additional complaints, except as docu GI Reports system reviewed and no additional complaints, except as docu, Reports nausea Reports system reviewed and no additional complaints, except as docu Musc Reports system reviewed and no additional complaints, except as docu Exam Const General: cooperative, healthy appearing, comfortable, anxious HENMT Head: normal to inspection Nose: external nose normal Face and sinus: normal facial exam Neck Neck: normal visual inspection, full ROM, no lymphadenopathy Thyroid: thyroid normal Chest Chest palpation & inspection: normal inspection of the chest Resp Effort & Inspection: normal respiratory effort GI Inspection: normal to inspection Palpation: soft, other (gravid uterus) Other: infant vertex and appropriate size for gestational age Other: Cervical Exam: Extrem General: pedal edema Results [id number] Office Urine Glucose Negative Last Edit by Anjelica Fuentes on 12/01/18 09:0 4 Office Urine Protein Negative Last Edit by Anjelica Fuentes on 12/01/18 09:0 4 Assessment & Plan Problems 1. Multigravida of advanced maternal age in third trimester O09.523 2. Anemia during O99.019 3. Rectus diastasis M62.08 4. Urinary tract infection in mother during first trimester of O23.41 5. Supervision of high risk , antepartum O09.90 6. 38 weeks gestation of Z3A.38 7. Mild asthma, unspecified whether complicated, unspecified whether persistent J45.909 Plan plan IOL at 39 weeks with Pitocin if no spontaneous labor movement and labor precautions reviewed. ACOG trimester education reviewed and updated. see problem list details for updated plan management information and see below for orders placed at this visit. GA appropriate handout given. Orders Orders: POC Urinalysis 2 Dip (Clinic) 12/01/18 Coding Level of Care Code OB Routine Diagnoses Multigravida of advanced maternal age in third trimester O09.523 ??Trimester: third trimester Anemia during O99.019 Rectus diastasis M62.08 Urinary tract infection in mother during first trimester of O23.41 ??Trimester: first trimester Supervision of high risk , antepartum O09.90 38 weeks gestation of Z3A.38 ??Weeks of gestation: 38 weeks Mild asthma, unspecified whether complicated, unspecified whether persistent J45.909 ??Asthma complication type: unspecified ??Asthma persistence: unspecified ??Asthma severity: mild
--- NOTE | 2018-12-06 21:39 | PCM.PN.BLA ---
Progress Note FHT: 120 Moderate variability reactive occasional periodic variable decelerations now resolved and category I tracing [place]: Every 2-3 minute contractions Patient comfortable with no sensation of pushing. labor down and then begin pushing
[2018-12-06] MEDS: Oxytocin 30 units/NS 500 ml 30 UNITS/500 ML IV.SOLN 334 UNITS IV (23:19)
--- NOTE | 2018-12-06 23:32 | OP.PCM_ITS ---
Problem List (1) AMA (advanced maternal age) multigravida 35+ Status: Acute Qualifiers: Trimester: third trimester Qualified Code(s): O09.523 - Supervision of elderly multigravida, third trimester (2) Anemia during Status: Acute (3) Asthma Status: Acute Qualifiers: Asthma severity: mild Asthma persistence: unspecified Asthma complication type: unspecified Qualified Code(s): J45.909 - Unspecified asthma, uncomplicated Comment: exercise induced-uses OTC bronchodilator (4) False labor Status: Acute (5) Status: Acute Qualifiers: Weeks of gestation: 38 weeks Qualified Code(s): Z3A.38 - 38 weeks gestation of Comment: low risk-female/AFP. Normal anatomy (6) Rectus diastasis Status: Acute (7) Supervision of high risk , antepartum Status: Acute Comment: PRR ZEFERINO 12/13/18 tonya Kaufman boyfriend Marvin (8) UTI in Status: Acute Qualifiers: Trimester: first trimester Qualified Code(s): O23.41 - Unspecified infection of urinary tract in , first trimester Comment: 07/06:tx. Repeat culture negative (9) Variable heart rate decelerations, antepartum Status: Acute Vaginal Delivery Maternal Presentation: Medically Indicated Induction iol ama Method of Induction: Pitocin Amniotic Membrane Rupture Type: Artificial Amniotic Fluid Description: Clear Final ZEFERINO: 12/13/18 Gestational age: 39 Weeks and 0 Days Date of Procedure: 12/06/18 Pre-Operative Diagnosis: iol ama Post-Operative Diagnosis: same Surgery/ Procedure Performed: Spontaneous Vaginal Delivery Type of Anesthesia: Epidural Description of Procedure: Patient began pushing and was having good descent and it was in the +3 station but was having recurrent periodic variable decelerations were increasing in length therefore the decision for an operative vaginal delivery was made. Patient was counseled for a vacuum-assisted delivery and the [place] vacuum was applied and a +3 station posterior made with 1 contraction with no pop offs. Head delivered MERT atraumatically followed by the anterior and posterior shoulders the rest the infant delivered was bulb suctioned at delivery and was placed on maternal abdomen delayed cord clamping and cord gases were all sent. Placenta delivered immediately following was noted be intact with three-vessel cord. First-degree perineal laceration was noted and repaired in the usual fashion with 3-0 Vicryl repeat. EBL 400 cc patient and infant tolerated delivery well. Presentation: MERT Placental Delivery Description: Spontaneous Placenta Disposition: [facility] Multi Select Codes - Urinary/Genital Urinary/Genital CPT Codes: 99886 Vaginal Delivery [facility]
[2018-12-07] MEDS: 0.9% Saline Lock 10 ML Syringe IV (02:53)
[2018-12-07 04:00] VITALS: BP 112/68; PULSE 69; RESP 18; TEMP 36.9
[2018-12-07] MEDS: Naproxen 250 MG Tablet 500 MG PO ×2 (07:59→18:42)
[2018-12-07 08:00] VITALS: BP 106/71; PULSE 78; RESP 16; TEMP 36.9; O2SAT 97
[2018-12-07] MEDS: Senna/Docusate Sodium 1 Tablet PO (10:16)
[2018-12-07 13:00] VITALS: BP 99/51; PULSE 68; TEMP 36.9; O2SAT 96
[2018-12-07] MEDS: Acetaminophen 500 MG Tablet 1000 MG PO ×2 (13:55→21:24)
[2018-12-07 17:00] VITALS: BP 100/73; PULSE 84; TEMP 37.2; O2SAT 96
[2018-12-07 21:12] VITALS: BP 101/74; PULSE 79; RESP 18; TEMP 36.8
[2018-12-08 00:32] VITALS: BP 110/66; PULSE 75; RESP 18; TEMP 36.8
[2018-12-08] MEDS: Naproxen 250 MG Tablet 500 MG PO (03:11)
[2018-12-08 03:14] VITALS: BP 108/67; PULSE 69; RESP 18; TEMP 36.4; O2SAT 98
--- NOTE | 2018-12-08 03:50 | PCM.PN.OB ---
Patient Problems: Active and Suspected Problems (Last Reviewed 12/01/18 @ 09:00 by Anjelica Fuentes) Variable heart rate decelerations, antepartum (Acute) Subjective: late entry- patient seen at 5pm /10 doing well no complaints pain controlled no CP SOB N V ambulating well tolerating po lochia moderate, going well - Physical Exam General: Alert, Oriented x3 Vital Signs Temp Pulse Resp BP Pulse Ox 97.5 F L 69 18 108/67 98 12/08/18 03:14 12/08/18 03:14 12/08/18 03:14 12/08/18 03:14 12/08/18 03:14 Oxygen Delivery Method Room Air Weight: 188 lb Body Mass Index (BMI) 34.4 Intake and Output for Last 24 Hours 12/06/18 12/07/18 12/08/18 23:59 23:59 23:59 Intake Total 4203.01 / 4203.01 333 / 333 Output Total 1800 / 1800 Balance 4203.01 / 4203.01 -1467 / -1467 Medical Necessity - Tobacco Use Smoking Status: Never smoker Assessment/Plan All Active Problems (Last Reviewed 12/01/18 @ 09:00 by Anjelica Fuentes) False labor (Acute) Variable heart rate decelerations, antepartum (Acute) AMA (advanced maternal age) multigravida 35+ (Acute) Anemia during (Acute) Rectus diastasis (Acute) UTI in (Acute) Supervision of high risk , antepartum (Acute) (Acute) Asthma (Acute) Pharyngitis, acute (Resolved) Supervision of other normal (Resolved) s/p PPD # 1 1. routine post delivery care 2. breast feeding- support given 3. rh positive 4. rubella immune
[2018-12-08] MEDS: Acetaminophen 500 MG Tablet 1000 MG PO (08:09)
[2018-12-08 08:30] VITALS: BP 109/74; PULSE 74; RESP 16; TEMP 36.6; O2SAT 94
[2018-12-08] MEDS: Senna/Docusate Sodium 1 Tablet PO (09:05)
[2018-12-08 13:29] VITALS: BP 109/71; PULSE 70; RESP 14; TEMP 37.2; O2SAT 96
--- NOTE | 2018-12-08 13:32 | NURSING ---
Patients fundus altered to right of midline due to full bladder. Patient educated on importance of emptying bladder when full to prevent potential hemorrhage. Instructor accompanied director nursing service for this assessment.
--- NOTE | 2018-12-08 13:37 | NURSING ---
This nursing program coordinator reviewed the documentation completed by Maya Fuentes student nurse and it is complete.
--- NOTE | 2018-12-08 14:52 | PCM.PN.OB ---
Subjective: doing well no complaints pain controlled no CP SOB N V ambulating well tolerating po lochia moderate, going well - Physical Exam General: Alert, Oriented x3 Vital Signs Temp Pulse Resp BP Pulse Ox 99 F 70 14 109/71 96 12/08/18 13:29 12/08/18 13:29 12/08/18 13:29 12/08/18 13:29 12/08/18 13:29 Oxygen Delivery Method Room Air Weight: 188 lb Body Mass Index (BMI) 34.4 Intake and Output for Last 24 Hours 12/06/18 12/07/18 12/08/18 23:59 23:59 23:59 Intake Total 4203.01 / 4203.01 333 / 333 Output Total 1800 / 1800 Balance 4203.01 / 4203.01 -1467 / -1467 Medical Necessity - Tobacco Use Smoking Status: Never smoker Assessment/Plan All Active Problems (Last Reviewed 12/08/18 @ 08:42 by Zenaida Fuentes) False labor (Acute) Variable heart rate decelerations, antepartum (Acute) AMA (advanced maternal age) multigravida 35+ (Acute) Anemia during (Acute) Rectus diastasis (Acute) UTI in (Acute) Supervision of high risk , antepartum (Acute) (Acute) Asthma (Acute) Pharyngitis, acute (Resolved) Supervision of other normal (Resolved) s/p PPD # 2 1. routine post delivery care 2. breast feeding- support given 3. rh positive 4. rubella immune
--- NOTE | 2018-12-08 14:54 | DCINST_ITS ---
Discharge Diet: No Restrictions Discharge Activity: Return to Normal Activity, May not drive while taking narcotic pain medications., May Shower May resume sexual activity in: 4-6 weeks Call your doctor if your incision/area has: Continuous Slow Oozing, Sudden Increased Bleeding, Increased Pain/ Swelling, Increased Redness, Foul Smelling Discharge Additional Instructions: If you experience any of the following, contact your healthcare provider. * Bleeding that soaks a pad every hour for 2 hours * Fever 100.4 or higher * Unrelieved incision or abdominal pain * Swelling, redness, discharge or bleeding from your incision or episiotomy site * Your incision begins to separate * Problems urinating (including inability to urinate or burning while urinating). * Visual changes * Severe headache * Flu-like symptoms * Pain or redness in one of both of your breasts * Pain, warmth, tenderness or swelling in your legs, especially the calf area * Frequent nausea and vomiting * Symptoms of depression or anxiety If you experience any of the following, call 911 or go to the nearest Emergency Room. * Chest pain * Problems breathing * Seizure activity * Partial or complete paralysis of a body part, slurred speech, weakness or drooping of the face, or a sudden inability to walk or hold your balance Allergies/Adverse Reactions: Allergies No Known Allergies Allergy (Verified 12/01/18 08:59) Medications to take at Discharge ferrous sulfate 325 mg (65 mg iron) tablet 325 mg PO DAILY 10/08/18 vitamin,calcium,clugsqjf-gmds-hiloe acid tablet 1 tab PO DAILY 10/08/18 Naproxen [Naprosyn] 250 - 500 mg PO Q8H PRN PRN #30 tab 12/08/18 The following prescriptions were given: Naproxen [Naprosyn] 250 - 500 mg PO Q8H PRN PRN #30 tab PRN Reason: MILD PAIN Transmission Status: Pending to [facility] Please Follow Up With: Nerissa Warren MD - [phone] When: Call to make an appointment with your doctor in 6 weeks. If you had elevated Blood pressure or 4th degree laceration you will need to be seen in 2 weeks. Primary Care Physician: Dwight Pacheco MD [Primary Care Provider] - Test Results: Test results from this visit will be discussed in further detail at your follow- up appointment, if applicable.
--- NOTE | 2018-12-08 14:54 | PCM.DCVAG ---
Discharge Diet: No Restrictions Discharge Activity: Return to Normal Activity, May not drive while taking narcotic pain medications., May Shower May resume sexual activity in: 4-6 weeks Call your doctor if your incision/area has: Continuous Slow Oozing, Sudden Increased Bleeding, Increased Pain/ Swelling, Increased Redness, Foul Smelling Discharge Additional Instructions: If you experience any of the following, contact your healthcare provider. Bleeding that soaks a pad every hour for 2 hours Fever 100.4 or higher Unrelieved incision or abdominal pain Swelling, redness, discharge or bleeding from your incision or episiotomy site Your incision begins to separate Problems urinating (including inability to urinate or burning while urinating). Visual changes Severe headache Flu-like symptoms Pain or redness in one of both of your breasts Pain, warmth, tenderness or swelling in your legs, especially the calf area Frequent nausea and vomiting Symptoms of depression or anxiety If you experience any of the following, call 911 or go to the nearest Emergency Room. Chest pain Problems breathing Seizure activity Partial or complete paralysis of a body part, slurred speech, weakness or drooping of the face, or a sudden inability to walk or hold your balance Allergies/Adverse Reactions: Allergies No Known Allergies Allergy (Verified 12/01/18 08:59) Medications to take at Discharge ferrous sulfate 325 mg (65 mg iron) tablet 325 mg PO DAILY 10/08/18 vitamin,calcium,rphhwxul-kwrw-kxniu acid tablet 1 tab PO DAILY 10/08/18 Naproxen [Naprosyn] 250 - 500 mg PO Q8H PRN PRN #30 tab 12/08/18 The following prescriptions were given: Naproxen [Naprosyn] 250 - 500 mg PO Q8H PRN PRN #30 tab PRN Reason: MILD PAIN Transmission Status: Pending to [facility] Please Follow Up With: Nerissa Warren MD - [phone] When: Call to make an appointment with your doctor in 6 weeks. If you had elevated Blood pressure or 4th degree laceration you will need to be seen in 2 weeks. Primary Care Physician: Dwight Pacheco MD [Primary Care Provider] - Test Results: Test results from this visit will be discussed in further detail at your follow-up appointment, if applicable.
== END 2018-12-08 16:00 | disposition home or self-care (01) | DRG 807 ==
PROVIDERS: Admitting Provider Obstetrics & Gynecology; Family Provider Family Medicine; PCP Family Medicine; Referring Provider Obstetrics & Gynecology; Visit Provider Obstetrics & Gynecology
DX: O99.02 Anemia complicating childbirth (principal); D64.9 Anemia, unspecified; O71.89 Other specified obstetric trauma; O70.0 First degree perineal laceration during delivery; O76 Abnormality in fetal heart rate and rhythm complicating labor and delivery; O99.52 Diseases of the respiratory system complicating childbirth; J45.909 Unspecified asthma, uncomplicated; Z3A.39 39 weeks gestation of pregnancy; Z37.0 Single live birth
CPT/HCPCS: 59025; 59050; 85025; 86850; 86900; 86901; 99218; J7120; A4216; G0378; J2405

== ENCOUNTER → 2019-05-12 08:06 | Outpatient (CLI) | payer OTHER, SELFPAY ==
[2019-05-03 10:36] VITALS: BMI 26.4
--- NOTE | 2019-05-13 12:48 | PFT ---
INTRODUCTION: The patient is a 38-year-old female that presents for pulmonary function studies secondary to a diagnosis of exercise-induced bronchospasm. Respiratory therapy reports good patient effort. Bronchodilators were used during testing. INTERPRETATION: Forced expiration spirometry demonstrates no evidence of a large airways obstructive ventilatory defect. There was no significant response to aerosolized bronchodilators, based upon strict ATS criteria. However, the patient did have a relatively robust mid flow bronchodilator response. Spirograms are of good quality and plateau normally. Body plethysmography was performed and reveals lung volumes to be within normal limits. Diffusing capacity by single breath CO is also within normal limits as well. IMPRESSION: Subtle stigmata of possible small airways disease. Otherwise, normal pulmonary function studies.
== END ==
PROVIDERS: PCP Family Medicine; Referring Provider Internal Medicine Critical Care Medicine; Visit Provider Internal Medicine Critical Care Medicine
DX: J45.990 Exercise induced bronchospasm (principal)
CPT/HCPCS: 94060; 94726; 94729

== ENCOUNTER → 2019-12-09 13:35 | Outpatient (CLI) | payer OTHER, SELFPAY ==
[2019-06-02 07:27] VITALS: BMI 26.4
--- NOTE | 2019-12-09 13:40 | RAD_ITS ---
STUDY: X-RAY - LUMBAR SPINE REASON FOR EXAM: Female, 39 years old. Low back pain seems to be more towards the L5 area, pt lifts weights and has a history of RA TECHNIQUE: 5 view(s) of the lumbar spine were obtained. COMPARISON: None FINDINGS: Normal lumbar lordosis. There is no substantial scoliosis. There is a normal alignment of the vertebrae. Normal vertebral bodies and endplates. Normal disc space heights. The soft tissue structures are unremarkable. RAD/L/S Spine Min 4 Views IMPRESSION: Within normal limits x-ray examination of the lumbar spine. Electronically Signed: Merry Merchant MD at 17:25 EDT Tel , Service support ,
== END ==
PROVIDERS: PCP Family Medicine; Referring Provider Family Medicine; Visit Provider Family Medicine
DX: M43.06 Spondylolysis, lumbar region (principal)
CPT/HCPCS: 72110

== ENCOUNTER → 2019-12-15 09:53 | Outpatient (CLI) | payer OTHER, SELFPAY ==
[2019-06-02 07:27] VITALS: BMI 26.4
--- NOTE | 2019-12-15 09:56 | CT_ITS ---
STUDY: CT LUMBAR SPINE WITHOUT CONTRAST REASON FOR EXAM: Female, 39 years old. POSSIBLE FX L4, BACK PAIN AND BURNING RADIATION DOSAGE (If Supplied By Facility): CTDIvol = ( 13.82 ) mGy, DLP = ( 360.02 ) mGycm TECHNIQUE: The patient was scanned in a multi detector CT scanner. High resolution transaxial imaging was performed. Images were obtained from to . Sagittal and coronal images were reconstructed. Individualized dose optimization techniques were used for this CT. COMPARISON: None FINDINGS: Normal lumbar lordosis. There is no substantial scoliosis. Normal vertebrae of the lumbar spine. L1-2: Normal endplates. Normal disc height and morphology. Normal bilateral facet joints. Normal central canal and bilateral lateral recesses. Normal bilateral intervertebral neural foramina. L2-3: Normal endplates. Normal disc height and morphology. Normal bilateral facet joints. Normal central canal and bilateral lateral recesses. Normal bilateral intervertebral neural foramina. L3-4: Minimal anterior spondylosis along the superior endplate of the L4 vertebrae. Normal disc height and morphology. Normal bilateral facet joints. Normal central canal and bilateral lateral recesses. Normal bilateral intervertebral neural foramina. L4-5: Normal endplates. Normal disc height and morphology. Normal bilateral facet joints. Normal central canal and bilateral lateral recesses. Normal bilateral intervertebral neural foramina. L5-S1: Normal endplates. Mild degree of diffuse posterior disc bulge worse on the right side with mild right neural foraminal narrowing. Normal bilateral facet joints. Normal central canal and bilateral lateral recesses. Normal bilateral intervertebral neural foramina. Normal visualized paraspinous soft tissue structures. CT/Spine Lumbar without Contrast IMPRESSION: Mild diffuse posterior disc bulge at the L5-S1 level worse on the right side with mild narrowing of the right intervertebral foramen. Mild anterior spondylosis at the L3-L4 level. Electronically Signed: Jordon Sood, at 10:36 EDT , Service support ,
== END ==
PROVIDERS: PCP Family Medicine; Visit Provider Family Medicine
DX: M43.06 Spondylolysis, lumbar region (principal); R93.7 Abnormal findings on diagnostic imaging of other parts of musculoskeletal system
CPT/HCPCS: 72131

== ENCOUNTER → 2020-01-31 | Outpatient (CLI) | payer OTHER, SELFPAY ==
[2020-01-31 08:22] VITALS: BMI 26.9
[2020-02-21 13:12] LABS: HPV APTIMA, High Risk Negative
== END | disposition home or self-care (01) ==
LOC: LABSPEC 12:49
PROVIDERS: PCP Family Medicine; Referring Provider Nurse Practitioner Women's Health; Visit Provider Nurse Practitioner Women's Health
DX: Z12.4 Encounter for screening for malignant neoplasm of cervix (principal)
CPT/HCPCS: 87624; 88175; G0145

== ENCOUNTER → 2020-03-12 12:22 | Outpatient (CLI) | payer OTHER, SELFPAY ==
[2020-03-09 13:11] VITALS: BMI 27.1
[2020-03-12 13:25] LABS: hCG Titer Quant., Serum < 1 mIU/mL (1-3)
[2020-03-12 13:32] LABS: Follicle Stimulating Hormone 26.9 mIU/mL; Luteinizing Hormone 24.2 mIU/mL; Prolactin 14.2 ng/mL; Thyroid Stim Hormone (TSH) 0.96 uIU/mL (0.358-3.74)
[2020-03-16 17:03] LABS: Anti-Mullerian Hormone,Serum < 0.015 ng/mL (.)
== END ==
PROVIDERS: PCP Family Medicine; Referring Provider Obstetrics & Gynecology; Visit Provider Obstetrics & Gynecology
DX: N91.2 Amenorrhea, unspecified (principal)
CPT/HCPCS: 36415; 83001; 83002; 83516; 84146; 84443; 84702

== ENCOUNTER → 2020-04-02 08:39 | Outpatient (CLI) | payer OTHER, SELFPAY ==
[2020-03-09 13:11] VITALS: BMI 27.1
[2020-04-02 09:33] LABS: Estradiol < 11.0 pg/mL; Follicle Stimulating Hormone 52.1 mIU/mL; Luteinizing Hormone 29.5 mIU/mL
[2020-04-05 09:36] LABS: Testosterone, % Free 1.91 % (0.50-2.80); Testosterone, Free 0.29 ng/dL (0.10-0.85); Testosterone, Total 15 ng/dL (8-48)
[2020-04-07 08:30] LABS: 17-Hydroxyprogesterone 27 ng/dL (.)
== END ==
PROVIDERS: PCP Family Medicine; Referring Provider Obstetrics & Gynecology; Visit Provider Obstetrics & Gynecology
DX: N91.2 Amenorrhea, unspecified (principal)
CPT/HCPCS: 36415; 82627; 82670; 83001; 83002; 83498; 84402; 84403; 82626

== ENCOUNTER → 2020-04-24 13:28 | Outpatient (CLI) | payer OTHER, SELFPAY ==
[2020-03-09 13:11] VITALS: BMI 27.1
--- NOTE | 2020-04-24 13:32 | BD_ITS ---
STUDY: DUAL ENERGY X-RAY ABSORPTIOMETRY / DXA REASON FOR EXAM: Female, 39 years old. MENOPAUSAL -EARLY AT 39 YRS OLD -- TAKES HORMONES IN CONTROL -- HX OF SMOKING IN PAST -- DOES HIGH AMOUNT OF EXERCISE -- FAMILY HX OF OSTEO- GRANDMOTHER -- NO NADEEN TECHNIQUE: Bone Mineral Density (BMD) measurements of lumbar spine and bilateral hips were obtained. COMPARISON: None. FINDINGS: Lumbar Spine (L1-L4): g/cm2 (1.054) / T-score (-0.9) / Z-score (0.9) Findings are suggestive of normal bone density with a low fracture risk. Left Femur Total: g/cm2 (1.025) / T-score (0.1) / Z-score (0.3) Left Femoral Neck: g/cm2 (0.969) / T-score (-0.5) / Z-score (-0.1) Right Femur Total: g/cm2 (0.968) / T-score (-0.3) / Z-score (-0.1) Right Femoral Neck: g/cm2 (0.939) / T-score (-0.7) / Z-score (-0.3) BD/Dexa Bone Density Study IMPRESSION: The patient is considered normal as outlined below according to [employer] Organization (WHO) criteria with a low fracture risk. Reference Information: The T-score is the number of standard deviations above or below the standard which is normal for young adults at their peak bone mineral density. The World Health Organization (WHO) interprets the T-scores as follows: Above -1 Normal bone density Between -1 and -2.5 Osteopenia Equal to / or below -2.5 Osteoporosis As a practical clinical guideline, osteopenia may be graded as follows: Mild -1 through -1.5 Moderate -1.6 through -2.0 Severe -2.1 through -2.4 The Z-score is the number of standard deviations above or below age-matched controls. A Z-score of less than -1.5 would be considered abnormal. References: 1. NIH Osteoporosis and Related Bone Diseases www osteo.org 2. International Society for Clinical Densitometry www iscd.org 3. National Osteoporosis Foundation www nof.org Electronically Signed: Jordon Sood MD at 14:33 EST , Service support ,
== END ==
PROVIDERS: PCP Family Medicine; Referring Provider Obstetrics & Gynecology; Visit Provider Obstetrics & Gynecology
DX: M06.9 Rheumatoid arthritis, unspecified (principal); E28.39 Other primary ovarian failure
CPT/HCPCS: 77080

== ENCOUNTER → 2020-12-20 08:51 | Outpatient (CLI) | payer OTHER, SELFPAY ==
--- NOTE | 2020-12-20 08:54 | RAD_ITS ---
STUDY: X-RAY - THORACIC SPINE REASON FOR EXAM: Female, 40 years old. PAIN AT SCAPULAE TECHNIQUE: 2 view(s) of the thoracic spine were obtained. COMPARISON: None. FINDINGS: Normal kyphosis of the thoracic spine. There is no substantial scoliosis. There is evidence of Schmorl''s nodes in the mid dorsal vertebrae. Normal disc space heights. The soft tissue structures are unremarkable. RAD/Thoracic Spine 2 Views IMPRESSION: Schmorl''s nodes in the mid thoracic vertebrae. Electronically Signed: Jordon Sood MD at 10:22 EDT , Service support ,
== END ==
PROVIDERS: PCP Family Medicine; Referring Provider Family Medicine; Visit Provider Family Medicine
DX: M99.08 Segmental and somatic dysfunction of rib cage (principal); M51.44 Schmorl's nodes, thoracic region
CPT/HCPCS: 72070; 72072

== ENCOUNTER → 2021-01-22 14:16 | Outpatient (CLI) | payer OTHER, SELFPAY ==
--- NOTE | 2021-01-22 14:17 | MRI_ITS ---
STUDY: MRI LUMBAR SPINE WITHOUT CONTRAST REASON FOR EXAM: Female, 40 years old. low back pain, right buttock pain TECHNIQUE: Standardized fat and water weighted pulse sequences were obtained in the sagittal and axial planes. COMPARISON: CT lumbar spine dated 12/15/2019 FINDINGS: Normal lumbar lordosis. There is no substantial scoliosis. Normal conus medullaris that terminates at the L1. L1-2: There is minimal disc space narrowing and endplate spondylosis. There is no significant disc herniation, central canal or foraminal stenosis. L2-3: There is minimal disc space narrowing and endplate spondylosis. There is no significant disc herniation, central canal or foraminal stenosis. L3-4: There is mild disc space narrowing and endplates spondylosis. Mild disc bulge and facet arthropathy without significant central canal stenosis. Mild right and mild left foraminal stenosis. L4-5: There is minimal disc space narrowing and endplates spondylosis. Mild disc bulge and facet arthropathy without significant central canal stenosis. Mild right and minimal left foraminal stenosis. L5-S1: There is mild disc space narrowing and endplates spondylosis mild disc bulge without significant central canal or foraminal stenosis. Mild facet arthropathy. Normal visualized sacral ala. MRI/Spine Lumbar (Routine) IMPRESSION: Mild degenerative changes Electronically Signed: Errol Lord MD at 13:51 EDT Tel , Service support ,
== END ==
PROVIDERS: PCP Family Medicine; Visit Provider Orthopaedic Surgery
DX: M47.817 Spondylosis without myelopathy or radiculopathy, lumbosacral region (principal)
CPT/HCPCS: 72148

== ENCOUNTER 2021-02-16 11:00 | Outpatient (RCR) | payer OTHER, SELFPAY ==
[2020-03-09 13:11] VITALS: BMI 27.1
--- NOTE | 2020-09-21 12:37 | MASS.EVAL ---
Massage Therapy Evaluation: Initial Evaluation Date: 09/21/2020 SUBJECTIVE: Deepak is a 30 year old female who was referred to the [facility] facility for a massotherapy evaluation by Dr. albert with the diagnosis of migraines. She presents today with the symptoms of pain, stiffness and tension in the neck, head, mid back, low back, and left knee. Deepak reports having a past medical history of chronic neck and back pain and that her knee pain could be due to IT band tightness.. OBJECTIVE: Upon observation Deepak has poor posture with her head and shoulders forward from the neutral position in sitting and standing. After examination and palpation, I found Deepak to have high muscle tension with tenderness and myofascial restrictions in her sub occipitals, levator scapulae, trapezius, rhomboids, scalenes, and thoracic paraspinals. Her QL?s, lumbar paraspinals, piriformis, ITB?s, glute medius and minimus all were very tight with fascial restrictions, tender points and trigger points. The first treatment consisted of a one hour massage to her full body with myofascial release, muscle stripping, trigger point compression techniques, and cervical manual traction. ASSESSMENT: I feel that Deepak is a good candidate for massotherapy at this time. She had a favorable response to the first treatment with reduction in her muscle aches, pain, and tension. She also had improvement in her cervical flexibility and low back flexibility. PLAN: The plan of care was reviewed with the patient. The patient is to be seen on an as needed basis for a total of ten sessions with the recommendation of once every month for a one hour treatment.
--- NOTE | 2021-03-16 12:38 | MASS.DISCH ---
Massage Therapy Discharge Summary: Discharge Date: 03/16/2021 Edith was seen for a massotherapy evaluation on 09/21/2020 with the diagnosis of migraines. She was treated with four sessions of massage therapy consisting of deep pressure soft tissue techniques, myofascial release and trigger point compression to his cervical, thoracic, lower back and hips. Edith responded well to the therapy by reporting decreased tension and pain throughout her neck, shoulders, lower back, lower extremities and hips. Her goals for therapy were met throughout the treatment sessions. At this time this patient is being discharged from our care at [facility] facility.
== END 2021-02-16 19:00 | disposition home or self-care (01) ==
LOC: MASS 11:00
PROVIDERS: PCP Family Medicine; Referring Provider Family Medicine; Visit Provider Family Medicine
DX: G43.909 Migraine, unspecified, not intractable, without status migrainosus (principal)
CPT/HCPCS: 97124

== ENCOUNTER → 2021-07-23 | Outpatient (CLI) | payer OTHER, SELFPAY ==
--- NOTE | 2021-07-23 07:05 | BI_ITS ---
MAMMOGRAPHY - BILATERAL SCREENING REASON FOR EXAM: Female, 41 years old. Routine annual screening examination. PERTINENT HISTORY: Non-contributory. TECHNIQUE: Digital bilateral breast jyoti (3D mammographic acquisition) in the CC and MLO projections. 2-D mediolateral oblique (MLO) and craniocaudad (CC) views of both breasts were obtained. CAD: Full Field Digital Mammography with Computer Added Detection was performed. COMPARISON: None. Baseline examination. FINDINGS: Breast Composition: The breasts are extremely dense, which lowers the sensitivity of mammography. There are no dominant masses or suspicious calcifications. No other significant abnormalities are identified. BI/SCRN MAMM (CAD)W/JYOTI BILAT IMPRESSION: Negative screening mammogram. Yearly followup mammogram recommended. (A) ASSESSMENT CATEGORY: BIRADS Category 1: Negative. A letter regarding these results will be sent to the patient by the facility within 30 days. Approximately 10% of breast cancers are not detected by mammography. A normal mammogram should not delay biopsy of a clinically suspicious abnormality. [id number] Electronically Signed: Jordon Sood MD at 11:39 EDT ,
== END | disposition home or self-care (01) ==
LOC: OPBI 07:04
PROVIDERS: PCP Family Medicine; Referring Provider Nurse Practitioner Women's Health; Visit Provider Nurse Practitioner Women's Health
DX: Z12.31 Encounter for screening mammogram for malignant neoplasm of breast (principal)
CPT/HCPCS: 77063; 77067

== ENCOUNTER → 2022-01-07 | Outpatient (CLI) | payer OTHER, SELFPAY ==
[2022-01-07 15:57] LABS: Free T3 2.4 pg/mL (2.18-3.98)
== END | disposition home or self-care (01) ==
LOC: BFHLAB 13:52
PROVIDERS: PCP Family Medicine; Visit Provider Family Medicine
DX: R53.83 Other fatigue (principal)
CPT/HCPCS: 36415; 84439; 84443; 84481

== ENCOUNTER 2022-02-19 10:34 | Outpatient (RCR) | payer OTHER, SELFPAY ==
--- NOTE | 2022-06-23 07:55 | HP.PT.NRP ---
LUCIEN MARIN was seen in my office for initial evaluation on 02/19/22. The following Plan of Care was established for this patient: Initial Frequency: 2x /Week Initial Duration: 2 Weeks Manual Therapy Techniques to Include: Functional dry needling This patient was last seen in our office . Pertinent comments regarding their Physical therapy will appear below: Dry Needle- D/c At this point I will be discontinuing this patient from physical therapy. I would be happy to see this patient again in the future if found appropriate by the physician. Thank you! Racquel Salazar, OLYT
== END 2022-02-19 19:00 | disposition home or self-care (01) ==
LOC: PT 10:34
PROVIDERS: PCP Family Medicine
DX: R69 Illness, unspecified (principal)

== ENCOUNTER → 2022-07-22 | Outpatient (CLI) | payer OTHER, SELFPAY ==
[2022-07-29 14:09] LABS: HPV APTIMA, High Risk Negative (Negative)
== END | disposition home or self-care (01) ==
LOC: LABSPEC 16:26
PROVIDERS: Referring Provider Nurse Practitioner Women's Health; Visit Provider Nurse Practitioner Women's Health
DX: Z12.4 Encounter for screening for malignant neoplasm of cervix (principal)
CPT/HCPCS: 87624; 88175; G0145

== ENCOUNTER → 2022-08-05 | Outpatient (CLI) | payer OTHER, SELFPAY ==
--- NOTE | 2022-08-05 07:52 | BI_ITS ---
MAMMOGRAPHY - BILATERAL SCREENING REASON FOR EXAM: Female, 42 years old. Routine annual screening examination. PERTINENT HISTORY: Non-contributory. TECHNIQUE: Digital bilateral breast jyoti (3D mammographic acquisition) in the CC and MLO projections. 2-D mediolateral oblique (MLO) and craniocaudad (CC) views of both breasts were obtained. CAD: Full Field Digital Mammography with Computer Added Detection was performed. COMPARISON: Comparison is made with prior study dated July 23, 2021. FINDINGS: Breast Composition: The breasts are extremely dense, which lowers the sensitivity of mammography. There are no dominant masses or suspicious calcifications. No other significant abnormalities are identified. There has been no significant change since the prior study. BI/SCRN MAMM (CAD)W/JYOTI BILAT IMPRESSION: Stable bilateral screening mammogram. Yearly follow-up mammogram recommended. (A) ASSESSMENT CATEGORY: BIRADS Category 1: Negative. A letter regarding these results will be sent to the patient by the facility within 30 days. Approximately 10% of breast cancers are not detected by mammography. A normal mammogram should not delay biopsy of a clinically suspicious abnormality. [id number] Electronically Signed: Jordon Sood MD at 9:05 EDT ,
== END | disposition home or self-care (01) ==
LOC: OPBI 07:49
PROVIDERS: Referring Provider Nurse Practitioner Women's Health; Visit Provider Nurse Practitioner Women's Health
DX: Z12.31 Encounter for screening mammogram for malignant neoplasm of breast (principal)
CPT/HCPCS: 77063; 77067

== ENCOUNTER 2022-09-16 10:19 | Day surgery (SDC) | payer OTHER, SELFPAY ==
--- NOTE | 2022-09-11 07:44 | EKG12_ITS ---
Test Reason : PREOP Blood Pressure : / mmHG Vent. Rate : 073 BPM Atrial Rate : 073 BPM P-R Int : 134 ms QRS Dur : 074 ms QT Int : 384 ms P-R-T Axes : -16 020 -01 degrees QTc Int : 423 ms Normal sinus rhythm Normal ECG Confirmed by ALICIA PISANO, JENNY ([id number]), advertising editor EMILY DEMARCO ([id number]) on 09/12/2022 10:15:35 A M Referred By: Nerissa Warren Confirmed By:SALOMÓN VARGAS MD
[2022-09-11 08:25] LABS: Hematocrit 40.3 % (37-47); Hemoglobin 13.7 g/dL (12.0-15.0); Mean Corpuscular Hgb 31.1 pg (27.0-32.0); Mean Corpuscular Volume 91.4 fL (81-99); Mean Platelet Vol. 10.4 fl (6.2-12.0); Platelet Count 292 K/mm3 (150-450); RBC Distribution Width CV 13.3 % (11.6-14.6); Red Blood Count 4.41 M/mm3 (4.2-5.4); White Blood Count 7.3 K/mm3 (4.4-11.0)
--- NOTE | 2022-09-15 17:30 | PCM.HP.BLA ---
History and Physical ntake Vital Signs ? 09/04/2310:01 09/04/2310:01 Height 5 ft 2 in 5 ft 2 in Weight: 131 lb 2 oz ? BMI 24.0 ? BP 127/85 H ? Intake Visit Reasons:?[employer] Required: No Is patient in pain?: No Allergies No Known Allergies Allergy (Verified 09/04/22 11:01) Medications citalopram 20 mg tablet (Celexa) 20 mg PO DAILY #90 tabs 08/11/22 [Rx Confirmed 09/04/22] Post menopausal: No Patient : No : No [facility] Medical History? Rheumatoid arthritis Social History? Smoking Status:? Never smoker alcohol intake:? never substance use type:? does not use caffeine:? Yes what type of physical activity do you participate in:? weight training and other details: treadmill frequency:? 1-2 times per week seatbelt use:? always do you feel safe at home:? Yes additional social history:? 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 she wants sterilization. Female Reproductive History Menopausal Symptoms: No night sweats History ? ? ? 2 ? Elective abortions ? Hx Para ? ? ? 2 ? Spontaneous abortions ? Hx # Term Pregnancies ? Ectopic pregnancies ? Hx # Pregnancies ? Multiple births ? # of living children ? ? ? 2 Past Pregnancies Del. Date Name GA/Weeks Outcome Route Bth Weight Gen Labor Lgth Anesthesia Del Locatn Provider FOB 10/26/11 Mandeep 38 live - full term 6lbs 13oz Male 12 hours epidural [facility] Dr. Kelvin Hooker 12/06/18 Araceli 39 live - full term vacuum ? Female ? epidural [facility] [facility] EREN ? Delivery Date: 10/26/11? Last Updated by: Candace Dai ? ? ? Moderate bleeding after . Delivery Date: 12/06/18? Last Updated by: Fadia Mahan ? ? ? VAVD variables IoL AMA ROS Const Constitutional: Denies fatigue, night sweats, weight gain or weight loss ENT ENT: Reports system reviewed and no additional complaints, except as documented Cardio Card: Denies chest pain Resp Resp: Denies cough or dyspnea GI GI: Reports as per HPI; Denies abdominal pain, constipation, nausea or vomiting : Denies nipple discharge, urinary frequency, urinary incontinence, urinary hesitancy, urinary urgency, vaginal discharge, vaginal dryness, vaginal odor or vaginal pruritus Musc Musc: Denies arthralgias, back pain or muscle weakness Skin Skin/Breast: Denies alopecia, change in hair, dry skin, breast mass, breast pain, breast skin changes or nipple discharge Neuro Neuro: Reports system reviewed and no additional complaints, except as documented Psych Psych: Reports system reviewed and no additional complaints, except as documented Endo Endo: Denies cold intolerance, excessive sweating, heat intolerance or polydipsia Bari/Lymph Hematologic/Lymphatic: Denies easy bleeding, Denies easy bruising and Denies lymphadenopathy Exam Const General: cooperative, healthy appearing, comfortable and no acute distress Orientation: alert [facility] Head: normal to inspection and normocephalic Ears: hearing grossly normal bilaterally and external ears normal Nose: external nose normal and nares normal Face and sinus: normal facial exam Neck Neck: normal visual inspection and no lymphadenopathy Thyroid: thyroid normal Chest Chest palpation & inspection: normal inspection of the chest Resp Effort & Inspection: normal respiratory effort Auscultation: clear to auscultation bilaterally Cardio Rate: regular rate Rhythm: regular rhythm Heart Sounds: S1 normal and S2 normal GI Inspection: normal to inspection and non-distended Palpation: soft and no hepatosplenomegaly Musc Other: gross motor intact no deficits, full bilateral strength Skin General: no rashes or lesions noted Neuro General: patient alert, patient awake, moves all extremities and no focal motor deficits Motor: muscle tone normal throughout Extrem General: normal to inspection and no pedal edema Psych Appearance: grossly normal Mental Status: mental status grossly normal Affect: normal affect Speech and Movement: speech and movement normal Coding Level of Care Code No Charge Diagnoses Contraception management? Z30.9 Assessment and Plan Assessment and Plan (1) Contraception management: ?Status:?Acute ?Comment: wants tubal removal in August either provider. Plan After discussing the patient's diagnosis and treatment plan options, patient wishes to proceed with surgical management.? I have discussed with the patient the risks, benefits, and alternatives of the procedure which include but are not limited to risks of anesthesia, bleeding, infection, possible damage to bowel, bladder, or surrounding vasculature which could lead to additional surgery to evaluate any complications.? Patient agrees to procedure and wishes to proceed.? ACOG/uptodate references given for additional information regarding procedure.? Plan Details Goals & Barriers: Goals Decrease pain Improve ROM Decrease spasm Target Due Date 09/30/21 Barriers RA DDD 09/04/22 1149 <Electronically signed by Nerissa Warren MD> Date Nerissa Warren MD [facility] Signature: Date (if applicable) ? CC: ? ~
--- NOTE | 2022-09-16 | FALS_PTH ---
PATIENT: LUCIEN MARIN LOC: [facility] U#:[id number] AGE/SX: 42/F ROOM: RE09/16/[address]: Dr. Nerissa Warren MD : 1980 BED: DIS: 09/16/2022 SPEC #: [id number] RECD: 09/16/22 15:56 STATUS: HUDSON REDaysi #: [id number] SUN: 09/16/22 00:[address]: Nerissa Warren DEPT: SURGICAL PATHOLOGY RECD BY: Tyler Ruvalcaba ENTERED: 09/17/22 09:19 SP TYPE: FALL TUBES OTHR DR: No Primary Care Phys Tissues: Fallopian tube Procedures: Surgery Specimen Level IV HEADER OPERATION: Laparoscopic salpingectomy PRE-OP DIAGNOSIS: Sterilization TISSUE SUBMITTED: Bilateral fallopian tubes MICROSCOPIC DIAGNOSIS Right and left fallopian tubes, salpingectomies: Complete segments of fallopian tubes. One fallopian tube with benign paratubal cyst. Other fallopian tube with focal changes consistent with endometriosis. AM:jazmín 09/18/2022 MICROSCOPIC DESCRIPTION Slides are reviewed. GROSS DESCRIPTION Received in fixative is one container labeled with the patient's name and designated bilateral fallopian tubes. The specimen consists of two fallopian tubes with an average length of 6.0 cm and has an average diameter of 0.7 cm. Both fallopian tubes have normal fimbriated ends. No mass lesions are identified. Behavioral Health Clinician sections are submitted in two cassettes as follows: 1 - one fallopian tube, 2??the other fallopian tube. / AM:jazmín 09/17/2022 TC: CPT: 69858 x2
[2022-09-16 10:51] VITALS: BP 117/76; PULSE 67; RESP 16; TEMP 36.7; O2SAT 100; BMI 23.4
[2022-09-16] MEDS: Lactated Ringers 1,000 ML 15 ML IV (10:56)
[2022-09-16 11:01] LABS: Internal QC Validated? YES +Cl - CLEAR BKGD; Pregnancy, Urine Negative Negative
--- NOTE | 2022-09-16 13:04 | PCM.OPRPT ---
Problems Associated Problem List Diagnoses (1) Contraception management: Report of Operation Date of Procedure: 09/16/22 Pre-Operative Diagnosis: see problem list Post-Operative Diagnosis: same Surgery/Procedure Performed:: laparoscopic bilateral salpingectomy Description of Surgical Findings:: nl uterus tubes ovaries Surgeon: Nerissa Warren Type of Anesthesia: General and Local Specimen's removed: tubes Drains: none Estimated Blood Loss (mL): 50 Fluids Replaced: crystalloid Description of Procedure: Patient was taken in the operating room and was placed under general anesthesia was prepped and draped in normal sterile fashion in the dorsal lithotomy position. Bladder was drained of clear urine and SCDs were on preoperatively. Uterus was sounded and a uterine manipulator was placed after dilating. Attention was then paid to the abdominal portion of the procedure and the umbilicus was elevated with towel clamps and injected with Marcaine and after a 5 mm incision was made and the Veress needle was entered into the abdomen confirmed to be intra-abdominal with a low opening pressure of less than 5 mmHg. Abdomen was insufflated with CO2 gas and a 5 mm optical trocar was placed under direct visualization. A 5 mm port suprapubically was placed under direct visualization. Uterus was well visualized and bilateral fallopian tubes identified and bilateral tubes were elevated and transecting across the mesosalpinx and the attachment to the uterine corpus bilaterally the tubes were removed without complication. Excellent hemostasis was noted. Fallopian tubes were removed through the lower port site without complication. Liver and upper abdomen were visualized notably within normal limits and no other gross abnormalities were seen in the abdomen. All instruments removed from the abdomen after gas was desufflated. Port sites were closed with 3-0 Monocryl Steri's and op sites were applied. All instruments removed from the vagina and patient was awoken and taken recovery in stable condition. Grafts/Implants Used: none Complications none Admit VTE Documentation VTE Present on Admission: No VTE Mechan Device Prophylaxis: SCD's Multi Select Codes Urinary/Genital Urinary/Genital CPT Codes: 49734 Laproscopic BS/O
--- NOTE | 2022-09-16 13:06 | DCINST_ITS ---
Discharge Instructions Diet Discharge Diet: No restrictions Activity Discharge Activity: Return to Normal Activity, May Drive (when pain free) and May Shower May resume sexual activity in: 1 week Weight Bearing Status: Full weight bearing Lifting Restrictions: 30 lbs for 2 weeks Dressing / Incision Call your doctor if your incision/area has: Continuous Slow Oozing, Sudden Increased Bleeding, Increased Pain/ Swelling, Increased Redness and Foul Smelling Discharge Call your doctor if you observe: Fever of 101 or Higher, Using more than 1 pad per hour, Shortness of breath, Chest pain and Uncontrolled pain Suture Line Care: Avoid Pulling/Pushing and Avoid Pinching/Bending Remove Dressing in: 1 week (if present) Cleanse incision/area with: Soap & Water and Keep Dressing Clean & Dry Follow Up Care Please Follow Up With: Nerissa Warren MD When: Call to make an appointment with your doctor for a postop visit in 2 weeks Test Results: Test results from this visit will be discussed in further detail at your follow- up appointment, if applicable. Discharge Plan Admission Attending Provider: Nerissa Warren Primary Care Provider: Care Physician,No Primary Discharge Orders/Prescriptions Prescriptions: New oxycodone-acetaminophen [Percocet] 5-325 mg tablet 1 tab PO Q6H PRN (Reason: pain) 7 Days Qty: 20 0RF Continued albuterol sulfate 90 mcg/actuation Hfa Aerosol Inhaler 1 inh INHALATION Q6H PRN (Reason: SOB) citalopram [Celexa] 20 mg tablet 20 mg PO DAILY Qty: 90 4RF Referrals / Follow Up: Care Physician,No Primary [Primary Care Provider] - Disposition Disposition (needs filled in before D/C Order can be placed): Home, Self Care
[2022-09-16] MEDS: Bupivacaine 0.25% 30 ML Vial (13:55)
[2022-09-16 14:25] VITALS: BP 117/76; BP 99/64; PULSE 82; RESP 16; TEMP 36.6; O2SAT 99
[2022-09-16 14:30] VITALS: BP 104/64; BP 117/76; PULSE 84; RESP 16; O2SAT 100
[2022-09-16 14:45] VITALS: BP 107/69; BP 117/76; PULSE 81; RESP 16; TEMP 36.4; O2SAT 100
[2022-09-16 15:10] VITALS: BP 117/76
== END 2022-09-16 15:21 | disposition home or self-care (01) ==
LOC: SDC 10:21 → AC 10:21
PROVIDERS: Anesthesiology; Referring Provider Obstetrics & Gynecology; Visit Provider Obstetrics & Gynecology
PROC: (CPT 58661; principal; 2022-09-16 14:30)
DX: Z30.2 Encounter for sterilization (principal); N83.8 Other noninflammatory disorders of ovary, fallopian tube and broad ligament; N80.209 Endometriosis of unspecified fallopian tube, unspecified depth; F41.9 Anxiety disorder, unspecified; F32.A Depression, unspecified; M99.01 Segmental and somatic dysfunction of cervical region; M99.02 Segmental and somatic dysfunction of thoracic region; M99.03 Segmental and somatic dysfunction of lumbar region; Z79.899 Other long term (current) drug therapy
CPT/HCPCS: 58661; 00840; 36415; 81025; 85027; 86850; 86900; 86901; 88302; 88305; 93005; J7120; J2405

== ENCOUNTER → 2022-11-25 | Outpatient (CLI) | payer OTHER, SELFPAY ==
--- NOTE | 2022-11-25 14:36 | RAD_ITS ---
STUDY: X-RAY CHEST REASON FOR EXAM: Female, 42 years old. Chest pain TECHNIQUE: PA and lateral views of the chest. COMPARISON: April 05, 2018 chest x-ray FINDINGS: The lungs are clear and expanded. There is no demonstrated pleural abnormality. Normal size heart. Normal mediastinum and sonia. Normal visualized pulmonary arteries. Normal visualized aortic arch and descending thoracic aorta. Normal visualized thoracic spine. Normal visualized ribs, clavicles, and shoulders. There is no demonstrated abnormality of the visualized soft tissue structures of the upper abdomen. RAD/Chest PA and Lateral IMPRESSION: Normal x-ray examination of the chest. Electronically Signed: Yisel Humphrey MD at 18:23 EDT Reading Location ID and State: [facility] / [place] Tel , Service support ,
== END | disposition home or self-care (01) ==
LOC: RAD 14:36
PROVIDERS: Referring Provider Internal Medicine; Visit Provider Internal Medicine
DX: R07.9 Chest pain, unspecified (principal)
CPT/HCPCS: 71046

== ENCOUNTER → 2023-02-23 | Outpatient (CLI) | payer OTHER, SELFPAY ==
[2023-02-23 15:03] LABS: Mucous, Urine 0 SEEN /hpf (<or=2+)
[2023-02-23 16:24] LABS: Color, Urine Yellow (Yellow); Glucose, Dipstick Normal (Normal); Ketone-Dipstick 5 mg/dl (Negative); Leukocyte Esterase-Dipstick 500 /ul (Negative); Nitrite-Dipstick Positive (Negative); Occult Blood-Urine 50 /ul (Negative); Protein-Dipstick 30 mg/dl (Negative); Specific Gravity, Urine 1.025 (1.002-1.030); Urine Bilirubin Dipstick Negative (Negative); Urine Clarity Cloudy (Clear); Urine Urobilinogen Normal (Normal)
[2023-02-23 16:43] LABS: Squamous Epithelial Cells - UA 0-5 SEEN /hpf (5-10); White Blood Cells >100 SEEN /hpf (0-5)
[2023-02-23 16:44] LABS: Bacteria RARE /hpf (None Seen); Red Blood Cells-Urine 0-5 SEEN /hpf (0-5)
== END | disposition home or self-care (01) ==
LOC: LABSPEC 15:01
PROVIDERS: PCP Internal Medicine; Referring Provider Internal Medicine; Visit Provider Internal Medicine
DX: R35.0 Frequency of micturition (principal)
CPT/HCPCS: 81001

== ENCOUNTER → 2023-11-10 | Outpatient (CLI) | payer OTHER, SELFPAY ==
--- NOTE | 2023-11-10 10:57 | BI_ITS ---
MAMMOGRAPHY - BILATERAL SCREENING REASON FOR EXAM: Female, 43 years old. Routine annual screening examination. PERTINENT HISTORY: Non-contributory. TECHNIQUE: Digital bilateral breast jyoti (3D mammographic acquisition) in the CC and MLO projections. 2-D mediolateral oblique (MLO) and craniocaudad (CC) views of both breasts were obtained. CAD: Full Field Digital Mammography with Computer Added Detection was performed. COMPARISON: Comparison is made with prior study August 05, 2022 and July 23, 2021. FINDINGS: Breast Composition: The breasts are extremely dense, which lowers the sensitivity of mammography. There are no dominant masses or suspicious calcifications. No other significant abnormalities are identified. There has been no significant change since the prior study. BI/SCRN MAMM (CAD)W/JYOTI BILAT IMPRESSION: Stable bilateral screening mammogram. Yearly follow-up mammogram recommended. (A) ASSESSMENT CATEGORY: BIRADS Category 1: Negative. A letter regarding these results will be sent to the patient by the facility within 30 days. Approximately 10% of breast cancers are not detected by mammography. A normal mammogram should not delay biopsy of a clinically suspicious abnormality. [id number] Electronically Signed: Jordon Sood MD at 12:12 EDT ,
[2023-11-10 13:40] LABS: Estradiol 76.6 pg/mL; Follicle Stimulating Hormone 28.8 mIU/mL
[2023-11-15 15:07] LABS: 17-Hydroxyprogesterone 144 ng/dL (.)
== END | disposition home or self-care (01) ==
PROVIDERS: PCP Internal Medicine; Referring Provider Nurse Practitioner Family; Visit Provider Nurse Practitioner Family
DX: Z12.31 Encounter for screening mammogram for malignant neoplasm of breast (principal)
CPT/HCPCS: 36415; 77063; 77067; 82670; 83001; 83498

== ENCOUNTER → 2023-12-15 | Outpatient (CLI) | payer OTHER, SELFPAY ==
[2023-12-15 16:53] LABS: Erythrocyte Sedimentation Rate 2 mm/hr (0-30)
[2023-12-15 16:55] LABS: ALB/GLOB Ratio 1.1 RATIO (0.9-2.4); AST(SGOT) 5 U/L (15-37); Alanine Aminotransfer ALT/SGPT 20 U/L (13-56); Albumin, Serum 3.9 g/dL (3.2-5.0); Alkaline Phosphatase 75 U/L (45-117); Anion Gap 6 (5-15); BUN 16 mg/dL (7-18); CRP < 2.90 mg/L (0.0-3.0); Chloride 104 mmol/L (98-107); EST Glomerular Filtration Rate 84 mL/min (>60); Est Glom Filt Rate - Afr Amer 101 mL/min (>60); Globulin 3.4 g/dL (2.2-4.2); Glucose 82 mg/dL (74-106); Potassium 3.6 mmol/L (3.5-5.1); Protein, Total 7.3 g/dL (6.4-8.2); Sodium Level 138 mmol/L (136-145); Troponin-I HS < 3 pg/mL (3.0-54.0)
[2023-12-15 16:59] LABS: D-Dimer Quantitative (DVT/PE) 0.49 FEU/ug/m (0.27-0.49)
== END | disposition home or self-care (01) ==
LOC: BIMLAB 14:38
PROVIDERS: PCP Internal Medicine; Visit Provider Nurse Practitioner
DX: R07.9 Chest pain, unspecified (principal)
CPT/HCPCS: 80053; 84484; 85379; 85652; 86140

== ENCOUNTER → 2023-12-21 | Outpatient (CLI) | payer OTHER, SELFPAY ==
--- NOTE | 2023-12-21 12:10 | CT_ITS ---
STUDY: CT CHEST WITHOUT CONTRAST REASON FOR EXAM: Female, 43 years old. Right sided chest pain RADIATION DOSAGE (If Supplied By Facility): CTDIvol = ( 6.72 ) mGy, DLP = ( 251.79 ) mGycm TECHNIQUE: Transaxial imaging was performed without the administration of intravenous contrast material. Multiplanar coronal and sagittal images were reformatted. Individualized dose optimization techniques were used for this CT. COMPARISON: No relevant priors. FINDINGS: CHEST The lungs are normal. There is no demonstrated pleural abnormality. Normal heart and pericardium. Normal mediastinum. Normal hilar regions. Normal unenhanced pulmonary arteries. Normal aorta arch and descending thoracic aorta. Normal osseous structures. There is no demonstrated abnormality of the visualized upper abdomen. CT/Chest without Contrast IMPRESSION: Normal unenhanced CT chest T abdomen examination. Electronically Signed: Jordon Sood MD at 12:31 EDT ,
== END | disposition home or self-care (01) ==
LOC: CT 12:09
PROVIDERS: PCP Internal Medicine; Referring Provider Nurse Practitioner; Visit Provider Nurse Practitioner
DX: R07.9 Chest pain, unspecified (principal)
CPT/HCPCS: 71250

== ENCOUNTER → 2025-01-18 | Outpatient (CLI) | payer OTHER, SELFPAY ==
--- NOTE | 2025-01-18 12:30 | BI_ITS ---
EXAM: SCRN MAMM (CAD)W/JYOTI BILAT DATE: 01/18/2025 CLINICAL HISTORY: F, Age 44 y/o , SCREENING No family history. TECHNIQUE: Procedure Code: BISMWCADBTOM Modality: MG Procedure: SCRN MAMM (CAD)W/JYOTI BILAT COMPARISON: Prior exam(s) dated November 10, 2023. FINDINGS: TISSUE DENSITY: The breasts are extremely dense, which lowers the sensitivity of mammography. Bilateral Breast Mammographic Findings: No significant masses, calcifications or other abnormalities are identified. No suspicious masses, areas of developing architectural distortion, or suspicious calcifications. There has been no significant interval change. BI/SCRN MAMM (CAD)W/JYOTI BILAT IMPRESSION: Stable bilateral screening mammogram. OVERALL FINAL ASSESSMENT BI-RADS 1: NEGATIVE. RECOMMENDATION: Routine annual follow-up in 1 Year Additional Recommendation none A letter with findings and recommendations will be mailed to the patient. Reading Location: [place] [id number]
== END | disposition home or self-care (01) ==
LOC: OPBI 13:58
PROVIDERS: PCP Internal Medicine; Referring Provider Internal Medicine; Visit Provider Internal Medicine
DX: Z12.31 Encounter for screening mammogram for malignant neoplasm of breast (principal)
CPT/HCPCS: 77063; 77067